=== PATIENT | female | born 1955 | race Caucasian/White ===

== ENCOUNTER 2019-02-19 10:07 | Inpatient (IN) | payer OTHER ==
[~2019-02-19] VITALS: Ht 167.6 cm; Wt 61.7 kg
[2019-02-19 10:21] VITALS: BP_SYST 156
--- NOTE | 2019-02-19 10:35 | NUR ---
IV access started, 22g into the left ac. pt stated she was on a walk today with her , and she had episode of chest pain and SOB. pt denies hx of heart issues.
--- NOTE | 2019-02-19 10:45 | NUR ---
ER at bedside examining patient.
[2019-02-19 10:52] LABS: BASOPHILS % (AUTO) 0.3 % (0.0-2.0); EOSINOPHILS # (AUTO) 0.1 K/uL (0.0-0.4); EOSINOPHILS % (AUTO) 0.9 % (0.0-4.0); HEMOGLOBIN 13.6 g/dL (12.0-16.0); LYMPHOCYTES # (AUTO) 1.9 K/uL (1.0-5.5); LYMPHOCYTES % (AUTO) 18.7 % (20.5-51.5); MEAN CORPUSCULAR HEMOGLOBIN 32 pg (27-31); MEAN CORPUSCULAR HGB CONC 33 % (32-36); MEAN CORPUSCULAR VOLUME 95 fL (79.0-98.0); MONOCYTES # (AUTO) 0.4 K/uL (0.0-1.0); MONOCYTES % (AUTO) 4.3 % (1.7-9.3); NEUTROPHILS # (AUTO) 7.8 K/uL (1.8-7.7); NEUTROPHILS % (AUTO) 75.8 % (40.0-70.0); PLATELET COUNT (AUTO) 239 K/uL (130-430); RED BLOOD CELL COUNT(AUTO) 4.31 MIL/uL (4.2-6.2); RED CELL DISTRIBUTION WIDTH 12.9 % (9.0-15.0); WHITE BLOOD COUNT (AUTO) 10.3 K/uL (4.8-10.8)
[2019-02-19 11:00] LABS: CALCIUM 9.9 mg/dL (8.4-11.0); CREATININE 0.7 mg/dL (0.55-1.30); POTASSIUM 4.6 mmol/L (3.5-5.1)
[2019-02-19] MEDS ORDERED: NITROGLYCERIN 1 INCH (GM) OINT. TP ONE (11:00)
[2019-02-19 11:06] LABS: TOTAL BILIRUBIN 0.2 mg/dL (0.0-1.0)
--- NOTE | 2019-02-19 11:16 | NUR ---
Medication reconciliation completed with information provided by patient. Any prior medication reconciliation on file was reviewed and corrected.
--- NOTE | 2019-02-19 11:24 | NUR ---
Patient will be admitted to care of Dr. Penn. Admitted to telemetry unit. Carl RN to assign room. Belongings list completed. Summary report printed. Report will be given at bedside.
--- NOTE | 2019-02-19 12:48 | NUR ---
ADMIT NOTE Received pt from ER to the floor with a diagnosis of CHEST PAIN. Admission process initiated. patient oriented to pain management, safety and call light-teach back done.
--- NOTE | 2019-02-19 12:50 | NUR ---
Patient transferred to telemetry bed 120B via hospital bed, mobile monitor, 2 RNs, with patent and intact IV. Bedside report given to VIVIANE Ortiz for continuation of care.
[2019-02-19 13:02] VITALS: BP_SYST 120
[2019-02-19] MEDS ORDERED: ACETAMINOPHEN 325 MG TABLET PO PRN (13:15)
[2019-02-19] MEDS ORDERED: HYDROcodone/ACETAMIN 5-325 MG TAB (NORCO/ VICODIN) PO PRN (13:15)
[2019-02-19] MEDS ORDERED: ONDANSETRON HCL 4 MG/2 ML VIAL IVP PRN (13:15)
[2019-02-19] MEDS ORDERED: NITROGLYCERIN 0.4 MG TAB.SUBL SL PRN (13:15)
[2019-02-19] MEDS ORDERED: GLUCOSE 15 GM GEL (in 37.5 GM TUBE) PO PRN (13:30)
[2019-02-19] MEDS ORDERED: INSULIN REGULAR, HUMAN 100 UNITS/ML, 10 ML VIAL (humuLIN R) SUBCUT PRN (13:30)
[2019-02-19] MEDS ORDERED: DEXTROSE 50% JECT 50 ML DISP.SYRIN IVP PRN (13:30)
--- NOTE | 2019-02-19 13:36 | NUR ---
CONSULTATION PAGED REASON FOR CONSULTATION:CHEST PAIN WAS CONSULT CALLED?Y PERSON WHO WAS NOTIFIED:RISSA CONSULTING PHYSICIAN:LUZ MARINA PHILLIPS ON CALL PHARMACY TECHNICIAN SPECIALTY:CARDIO ON CALL PHARMACY TECHNICIAN PHONE NUMBER:[phone] REQUESTING PHYSICIAN:KADI GONZALEZ
--- NOTE | 2019-02-19 13:53 | NUR ---
DR. FONTANEZ AT BEDSIDE ASSESSING PATIENT.
[2019-02-19 14:16] LABS: PHOSPHORUS 3.9 mg/dL (2.7-4.5)
[2019-02-19 14:43] LABS: FREE T4 (FREE THYROXINE) 1.2 ng/dl (0.8-1.5); THYROID STIMULATING HORMONE 1.1 uIu/mL (0.36-3.74)
[2019-02-19 16:00] VITALS: BP_SYST 126
--- NOTE | 2019-02-19 16:10 | NUR ---
DR. TURPIN IS HERE TO ASSESS PATIENT.
--- NOTE | 2019-02-19 18:25 | NUR ---
PATIENT HAS DINNER; TOLERATED WITHOUT DISTRESS.
--- NOTE | 2019-02-19 19:15 | NUR ---
OPENING NOTE Patient and bedside report was received from day shift nurse. Patient is awake, alert and oriented x 4; no s/s of acute distress. Spouse at bedside. Safety and fall precautions are in place. Plan of care discussed; patient agreeable. Will monitor.
--- NOTE | 2019-02-19 19:49 | NUR ---
CRITICAL TROPONIN 0.[address] ROSENTHAL-NO NEW ORDERS Patient's critical troponin of 0.454 (and previous troponin level of <0.017) was report to Dr. Rosenthal. No new orders were received.
[2019-02-19] MEDS: DOCUSATE SODIUM 100 MG CAPSULE PO SCH (20:16)
[2019-02-19] MEDS: HEPARIN SODIUM,PORCINE 5000 UNITS/ML VIAL SUBCUT SCH (20:19)
[2019-02-19 20:20] VITALS: BP_SYST 117
[2019-02-19] MEDS ORDERED: METOPROLOL TARTRATE 25 MG TABLET PO SCH (21:00)
--- NOTE | 2019-02-19 22:00 | NUR ---
PATIENT TRANSFERRED TO 118B Patient was transferred to 118B. Denies any needs at this time. Safety and fall precautions in place. Will monitor.
[2019-02-20 00:10] VITALS: BP_SYST 117
--- NOTE | 2019-02-20 00:20 | NUR ---
PATIENT UPSET/REQUESTED TO NOT BE DISTURBED UNTIL THE MORNING Patient was upset when midnight vitals were taken. Requested not to be bothered by hospital staff until the morning.
[2019-02-20 00:58] LABS: BILIRUBIN,URINE NEGATIVE (NEGATIVE); CLARITY/URINE CLEAR (CLEAR); COLOR,URINE YELLOW (YELLOW); GLUCOSE,URINE NEGATIVE (NEGATIVE); KETONES,URINE NEGATIVE (NEGATIVE); LEUKOCYTE ESTERASE ,URINE NEGATIVE (NEGATIVE); NITRITE, URINE NEGATIVE (NEGATIVE); PH,URINE 7.5 (5.0-8.0); PROTEIN URINE NEGATIVE (NEGATIVE); UROBILINOGEN,URINE 0.2 (0.2-1.0)
[2019-02-20 01:02] LABS: BLOOD, URINE TRACE (NEGATIVE)
[2019-02-20 01:04] LABS: BACTERIA,URINE FEW /HPF (None Seen); WBC,URINE 0-3 /HPF (0-3)
--- NOTE | 2019-02-20 01:25 | NUR ---
CONSULT CONSULT CALLED FOR DR. FONTANEZ I SPOKE WITH SHAILESH CUEVAS REASON FOR CONSULT: CHEST PAIN REQUESTING CONSULT: DR. FONTANEZ CHIEF MECHANICAL OFFICER PHONE NUMBER: [phone]
--- NOTE | 2019-02-20 05:30 | NUR ---
EQUIPMENT ALARM ADDRESSED Patient called; equipment alarm was addressed and corrected.
--- NOTE | 2019-02-20 07:05 | NUR ---
CLOSING NOTES All needs met throughout shift. Care and bedside report endorsed to day shift nurse.
[2019-02-20 07:40] VITALS: BP_SYST 117
--- NOTE | 2019-02-20 07:42 | NUR ---
AM ROUNDS Receive patient, AOx4. Vital signs taken and recorded. Assessment done per protocol. Denies pain and discomfort at this time. No SOB. No chest pain. Call light within reach. Addendum: 02/20/19 at 0802 by Clarita Saldana RN Denies chest pain. Patient states ''it feels like acid reflux''
[2019-02-20 07:45] VITALS: BP_SYST 117
[2019-02-20] MEDS: DOCUSATE SODIUM 100 MG CAPSULE PO SCH (08:36)
[2019-02-20] MEDS: HEPARIN SODIUM,PORCINE 5000 UNITS/ML VIAL SUBCUT SCH (08:36)
[2019-02-20] MEDS ORDERED: ASPIRIN 81 MG TAB.CHEW PO SCH (09:00)
[2019-02-20] MEDS ORDERED: LISINOPRIL 5 MG TABLET PO SCH (09:00)
[2019-02-20] MEDS ORDERED: ATORVASTATIN 20 MG TABLET PO SCH (09:00)
[2019-02-20 09:01] LABS: BASOPHILS % (AUTO) 0.4 % (0.0-2.0); EOSINOPHILS % (AUTO) 0.3 % (0.0-4.0); HEMATOCRIT 40.2 % (36-48); HEMOGLOBIN 13.7 g/dL (12.0-16.0); LYMPHOCYTES # (AUTO) 2.3 K/uL (1.0-5.5); LYMPHOCYTES % (AUTO) 21.3 % (20.5-51.5); MEAN CORPUSCULAR HEMOGLOBIN 32 pg (27-31); MEAN CORPUSCULAR HGB CONC 34 % (32-36); MONOCYTES # (AUTO) 0.7 K/uL (0.0-1.0); MONOCYTES % (AUTO) 6.1 % (1.7-9.3); NEUTROPHILS # (AUTO) 7.8 K/uL (1.8-7.7); NEUTROPHILS % (AUTO) 71.9 % (40.0-70.0); PLATELET COUNT (AUTO) 242 K/uL (130-430); RED CELL DISTRIBUTION WIDTH 13.3 % (9.0-15.0); WHITE BLOOD COUNT (AUTO) 10.8 K/uL (4.8-10.8)
[2019-02-20 09:10] LABS: MEAN CORPUSCULAR VOLUME 93 fL (79.0-98.0)
[2019-02-20 09:17] LABS: CALCIUM 9.4 mg/dL (8.4-11.0); CREATININE 0.73 mg/dL (0.55-1.30); POTASSIUM 3.4 mmol/L (3.5-5.1)
[2019-02-20 09:48] VITALS: BP_SYST 117
--- NOTE | 2019-02-20 10:11 | NUR ---
TRANSFER REPORT: Report given to VIVIANE Lunsford [facility] laboratory manager. Addendum: 02/20/19 at 1035 by Leesa Dinh RN Patient is going to [facility] room 273, report given to
--- NOTE | 2019-02-20 10:50 | NUR ---
Transfer: Transferred to [facility] with [facility] ambulance.
== END 2019-02-20 11:50 | disposition short-term general hospital (02) | DRG 282 ==
LOC: SED 10:07 → STU 11:39
PROVIDERS: ADMIT Student in an Organized Health Care Education/Training Program; ATTEND Student in an Organized Health Care Education/Training Program
DX: I21.4 Non-ST elevation (NSTEMI) myocardial infarction (principal); E78.5 Hyperlipidemia, unspecified; E11.9 Type 2 diabetes mellitus without complications; I10 Essential (primary) hypertension; Z98.891 History of uterine scar from previous surgery; Z82.49 Family history of ischemic heart disease and other diseases of the circulatory system; Z80.8 Family history of malignant neoplasm of other organs or systems; Z79.84 Long term (current) use of oral hypoglycemic drugs
CPT/HCPCS: 36415; 71045; 80048; 80053; 80061; 81000-TC; 82150-TC; 82550-TC; 83036; 83690-TC; 83735-TC; 83880; 84100-TC; 84439; 84443-TC; 84484; 85025; 85379; 85610-TC; 85730-TC; 87086; 93005; 93306; 99285; G0378; J1644